=== PATIENT | female | born 1985 | race Caucasian/White ===

== ENCOUNTER 2017-12-08 10:30 | Emergency (ER) | payer MEDICAID, OTHER ==
[~2017-12-08] VITALS: Ht 152.4 cm; Wt 65.0 kg
[~2017-12-08 10:30] MED LIST: MEDR10TA PO
[2017-12-08 11:03] LABS: BASOPHILS % (AUTO) 0.5 % (0-1); EOSINOPHILS # (AUTO) 0.1 X10'3 (0-0.9); EOSINOPHILS % (AUTO) 2.3 % (0-6); HEMATOCRIT 39.6 % (35.0-45.0); HEMOGLOBIN 13.7 g/dl (12.0-16.0); LYMPHOCYTES # (AUTO) 1.1 X10'3 (1.1-4.8); MEAN CORPUSCULAR HEMOGLOBIN 28.5 PG (27.0-31.0); MEAN CORPUSCULAR HGB CONC 34.7 % (33.0-36.5); MEAN PLATELET VOLUME 8.6 FL (7.4-10.4); MONOCYTES # (AUTO) 0.4 X10'3 (0-0.9); NEUTROPHILS # (AUTO) 4.4 X10'3 (1.8-7.7); NEUTROPHILS % (AUTO) 72.2 % (42-75); PLATELET COUNT 185 X10'3 (140-440); RED BLOOD COUNT 4.83 X10'6 (4.20-5.60); RED CELL DISTRIBUTION WIDTH 13.1 % (11.5-14.5); WHITE BLOOD COUNT 6.1 X10'3 (4.5-11.0)
[2017-12-08 11:12] LABS: PROTHROMBIN TIME 10.1 SECONDS (9.0-12.0)
[2017-12-08 11:16] LABS: ANION GAP 9 (8-16); BILIRUBIN,TOTAL 0.6 MG/DL (0.1-1.0); BLOOD UREA NITROGEN 12 MG/DL (7-18); BUN/CREATININE RATIO 17.1 (6.6-38.0); CALCIUM 8.8 MG/DL (8.5-10.1); CHLORIDE 101 MMOL/L (99-107); GLUCOSE 91 MG/DL (70-104); POTASSIUM 3.8 MMOL/L (3.5-5.1); SODIUM 137 MMOL/L (135-145); TOTAL CARBON DIOXIDE 26.8 MMOL/L (24-32); eGFR > 90 ML/MIN
[2017-12-08 11:17] LABS: ALANINE AMINOTRANSFERASE 25 U/L (12-78); ALBUMIN 4.1 G/DL (3.4-5.0); ALBUMIN/GLOBULIN RATIO 1.1 (1.1-1.5); ALKALINE PHOSPHATASE 46 IU/L (46-116); ASPARTATE AMINO TRANSFERASE 17 U/L (10-37); LIPASE 112 U/L (73-393); TOTAL PROTEIN 7.7 G/DL (6.4-8.2)
[2017-12-08 11:40] LABS: URINE HCG NEGATIVE (NEG)
[2017-12-08 11:41] LABS: COLOR,URINE YELLOW (Yellow); GLUCOSE, URINE NEGATIVE (Neg); KETONES,URINE NEGATIVE (Neg); LEUKOCYTE ESTERASE ,URINE TRACE (Neg); NITRITES, URINE NEGATIVE (Neg); OCCULT BLOOD,URINE LARGE (Neg); PH,URINE 5.5 (4.8-8.0); PROTEIN,URINE NEGATIVE (Neg); UA COLLECTION TYPE CLN CATCH MIDSTREAM; UROBILINOGEN,URINE 0.2 E.U/dL (0.2-1.0)
[2017-12-08 11:48] LABS: BACTERIA,URINE FEW /HPF (Neg); MUCUS STRANDS FEW /LPF (Neg); SQUAMOUS EPITHELIAL CELL,UR FEW /LPF (FEW); WBC,URINE 0-4 /HPF (0-4)
[2017-12-08 11:50] LABS: CLARITY,URINE Slightly Cloudy (Clear)
[2017-12-08 14:41] VITALS: BP 130/70
== END 2017-12-08 14:42 | disposition home or self-care (01) ==
LOC: ER 10:30
DX: R10.31 Right lower quadrant pain (principal); R10.11 Right upper quadrant pain; J45.909 Unspecified asthma, uncomplicated; Z90.89 Acquired absence of other organs; Z98.51 Tubal ligation status; Z88.0 Allergy status to penicillin; Z88.1 Allergy status to other antibiotic agents; Z88.6 Allergy status to analgesic agent; Z79.899 Other long term (current) drug therapy
CPT/HCPCS: 36415; 76700; 80053; 81001; 81025; 83690; 85025; 85610; 87088; 99285

== ENCOUNTER 2021-07-02 18:26 | Emergency (ER) | payer MEDICAID, OTHER ==
[~2021-07-02] VITALS: Ht 152.4 cm; Wt 61.9 kg
[2021-07-02 18:39] VITALS: BP 112/76
[2021-07-02] MEDS ORDERED: HYDR-3965 PO (20:31)
[2021-07-02] MEDS ORDERED: CEPH-585 PO (20:31)
== END 2021-07-02 20:40 | disposition home or self-care (01) ==
LOC: ER 18:27
DX: S50.861A Insect bite (nonvenomous) of right forearm, initial encounter (principal); L03.113 Cellulitis of right upper limb; J45.909 Unspecified asthma, uncomplicated; Z98.51 Tubal ligation status; Z72.89 Other problems related to lifestyle; Z88.0 Allergy status to penicillin; Z88.1 Allergy status to other antibiotic agents; Z88.8 Allergy status to other drugs, medicaments and biological substances; Z79.899 Other long term (current) drug therapy; W57.XXXA Bitten or stung by nonvenomous insect and other nonvenomous arthropods, initial encounter; Y93.89 Activity, other specified; Y92.89 Other specified places as the place of occurrence of the external cause; Y99.8 Other external cause status
CPT/HCPCS: 99283